=== PATIENT | female | born 1985 | race Caucasian/White ===

== ENCOUNTER 2017-05-25 23:50 | Outpatient (CLI) | payer MEDICAID | END 2017-05-26 01:04 | disposition home or self-care (01) | LOC: L-D 23:50 → OBT 23:50 | DX: O62.9 Abnormality of forces of labor, unspecified (principal); Z3A.38 38 weeks gestation of pregnancy | CPT/HCPCS: Z7500 ==

== ENCOUNTER 2017-05-31 00:06 | Inpatient (IN) | payer MEDICAID ==
[2017-05-31] MEDS ORDERED: LACTATED RINGER'S 500 ML IV (03:42)
[2017-05-31] MEDS ORDERED: LIDOCAINE 1% (MPF) 30 ML INJ INJ (04:00)
[2017-05-31] MEDS: AMPICILLIN 2 GM/NS (PMX) 100 ML IV (04:00)
[2017-05-31] MEDS ORDERED: MISOPROSTOL 200 MCG TAB PR ×3 (04:00→15:30)
[2017-05-31] MEDS ORDERED: CARBOPROST 250 MCG INJ IM ×3 (04:00→15:30)
[2017-05-31] MEDS ORDERED: IBUPROFEN 600 MG TAB PO (04:00)
[2017-05-31] MEDS ORDERED: HYDROCODONE/APAP (5/325) TAB PO ×2 (04:00→14:00)
[2017-05-31] MEDS ORDERED: OXYTOCIN 30 UNITS/LR 500 ML IV ×6 (04:00→15:30)
[2017-05-31] MEDS ORDERED: BUTORPHANOL 2 MG INJ IV (04:00)
[2017-05-31] MEDS ORDERED: METHYLERGONOVINE 0.2 MG INJ IM ×3 (04:00→15:30)
[2017-05-31 04:37] LABS: ADD MAN DIFF? NO
[2017-05-31 04:51] LABS: ADD UMIC YES; UR ASCORBIC ACID 40 mg/dL (NEGATIVE); UR BACTERIA FEW /HPF (NONE SEEN); UR BILIRUBIN (Dip) NEGATIVE (NEGATIVE); UR BLOOD (Dip) NEGATIVE (NEGATIVE); UR CLARITY CLOUDY (CLEAR); UR COLOR YELLOW (YELLOW); UR GLUCOSE (Dip) NEGATIVE (NEGATIVE); UR KETONES (Dip) NEGATIVE (NEGATIVE); UR LEUKOCYTE ESTERASE (Dip) 2+ Leu/ul (NEGATIVE); UR MUCUS FEW /HPF (NONE SEEN); UR NITRITE (Dip) NEGATIVE (NEGATIVE); UR RBC 1 /HPF (0-5); UR SPECIFIC GRAVITY (Dip) 1.027 (1.003-1.030); UR SQUAMOUS EPITHELIAL CELL MODERATE /HPF (FEW); UR TOTAL PROTEIN (Dip) 1+ mg/dl (NEGATIVE); UR UROBILINOGEN (Dip) 1+ mg/dL (NEGATIVE); UR WBC 24 /HPF (0-5)
[2017-05-31 04:59] LABS: INR 0.89; PROTIME 12.1 Sec (11.9-14.9); PT RATIO 0.9
[2017-05-31 05:00] LABS: PARTIAL THROMBOPLASTIN TIME 25.8 Sec (25.0-35.0)
[2017-05-31 05:14] LABS: WHITE BLOOD COUNT 9.2 10^3/ul (4.8-10.8)
[2017-05-31 05:14] LABS: BASOPHILS % 0.4 % (0.0-2.0); EOSINOPHILS # 0.1 10^3/ul (0.0-0.5); EOSINOPHILS % 1.1 % (0.0-7.0); HEMATOCRIT 31.9 % (37.0-47.0); HEMOGLOBIN 10.6 g/dl (12.0-16.0); LYMPHOCYTES # 2.5 10^3/ul (0.8-2.9); LYMPHOCYTES % 27.3 % (15.0-51.0); MEAN CORPUSCULAR HEMOGLOBIN 26.1 pg (29.0-33.0); MEAN CORPUSCULAR HGB CONC 33.2 g/dl (32.0-37.0); MEAN CORPUSCULAR VOLUME 78.6 fl (82.0-101.0); MEAN PLATELET VOLUME 9.6 fl (7.4-10.4); MONOCYTE # 0.6 10^3/ul (0.3-0.9); MONOCYTES % 6.6 % (0.0-11.0); NEUTROPHIL # 5.9 10^3/ul (1.6-7.5); NEUTROPHILS % 64.1 % (39.0-77.0); PLATELET COUNT 299 10^3/UL (140-415); RED BLOOD COUNT 4.06 10^6/ul (4.20-5.40); RED CELL DISTRIBUTION WIDTH 14.5 % (11.5-14.5)
[2017-05-31] MEDS: LACTATED RINGER'S 1,000 ML IV (05:37)
[2017-05-31] MEDS ORDERED: AMPICILLIN 1 GM/NS (PMX) 50 ML IV (08:00)
[2017-05-31] MEDS: OXYTOCIN 30 UNITS/LR 500 ML IV ×3 (09:41→16:21)
[2017-05-31] MEDS: BUTORPHANOL 2 MG INJ IV (11:31)
[2017-05-31 12:53] LABS: AMPHETAMINE/METHAMPHETAMINE Negative (NEGATIVE); BARBITURATES Negative (NEGATIVE); BENZODIAZEPINES Negative (NEGATIVE); CANNABINOIDS Negative (NEGATIVE); COCAINE Negative (NEGATIVE); OPIATES Negative (NEGATIVE)
[2017-05-31] MEDS ORDERED: LACTATED RINGER'S 1,000 ML IV* (13:47)
[2017-05-31] MEDS ORDERED: ACETAMINOPHEN 325 MG TAB PO (14:00)
[2017-05-31] MEDS ORDERED: SENNA/DOCUSATE NA (8.6MG/50MG) TAB PO ×2 (14:00→15:30)
[2017-05-31] MEDS ORDERED: LANOLIN 7 GM TUBE TOP (14:00)
[2017-05-31] MEDS ORDERED: DIPHENHYDRAMINE 25 MG CAP PO (14:00)
[2017-05-31] MEDS ORDERED: ZOLPIDEM 5 MG TAB PO ×2 (14:00→15:30)
[2017-05-31] MEDS ORDERED: MAGNESIUM HYDROXIDE 30ML CUP PO (14:00)
[2017-05-31] MEDS ORDERED: WITCH HAZEL/GLYCERIN PAD PR (14:00)
[2017-05-31] MEDS ORDERED: OXYCODONE/ASPIRIN (4.88/325) TAB PO (15:30)
[2017-05-31 16:46] LABS: RAPID PLASMA REAGIN NONREACTIVE (NR)
[2017-05-31] MEDS: BENZOCAINE 20% 56 ML SPRAY TOP (17:01)
[2017-05-31] MEDS: LANOLIN 7 GM TUBE TOP (17:02)
[2017-05-31] MEDS: WITCH HAZEL/GLYCERIN PAD PR (17:02)
[2017-05-31 17:54] LABS: HEPATITIS B SURFACE ANTIGEN NEGATIVE (NEGATIVE)
[2017-05-31] MEDS ORDERED: IBUPROFEN 800 MG TAB PO (18:00)
[2017-05-31] MEDS: IBUPROFEN 600 MG TAB PO ×2 (18:28→23:47)
[2017-05-31] MEDS: SENNA/DOCUSATE NA (8.6MG/50MG) TAB PO (20:35)
[2017-06-01] MEDS: IBUPROFEN 600 MG TAB PO ×3 (05:37→18:03)
[2017-06-01] MEDS: SENNA/DOCUSATE NA (8.6MG/50MG) TAB PO ×2 (10:06→20:54)
[2017-06-01 10:18] LABS: ADD MAN DIFF? NO
[2017-06-01 10:20] LABS: BASOPHIL # 0.1 10^3/ul (0.0-0.1); BASOPHILS % 0.5 % (0.0-2.0); EOSINOPHILS # 0.1 10^3/ul (0.0-0.5); EOSINOPHILS % 0.6 % (0.0-7.0); HEMATOCRIT 27.9 % (37.0-47.0); HEMOGLOBIN 9.2 g/dl (12.0-16.0); LYMPHOCYTES # 2.5 10^3/ul (0.8-2.9); LYMPHOCYTES % 22.8 % (15.0-51.0); MEAN CORPUSCULAR HEMOGLOBIN 26.2 pg (29.0-33.0); MEAN CORPUSCULAR VOLUME 79.5 fl (82.0-101.0); MEAN PLATELET VOLUME 9.5 fl (7.4-10.4); MONOCYTE # 0.6 10^3/ul (0.3-0.9); MONOCYTES % 5.3 % (0.0-11.0); NEUTROPHIL # 7.6 10^3/ul (1.6-7.5); NEUTROPHILS % 70.3 % (39.0-77.0); PLATELET COUNT 265 10^3/UL (140-415); RED BLOOD COUNT 3.51 10^6/ul (4.20-5.40); RED CELL DISTRIBUTION WIDTH 14.9 % (11.5-14.5)
[2017-06-01 10:20] LABS: WHITE BLOOD COUNT 10.8 10^3/ul (4.8-10.8)
[2017-06-02] MEDS: IBUPROFEN 600 MG TAB PO ×3 (00:50→12:19)
[2017-06-02] MEDS: DIPHTH/TET/ACEL PERTUSS (ADULT) 0.5 ML VIAL IM* ×2 (09:00)
[2017-06-02] MEDS: VARICELLA VACCINE LIVE/PF 1,350 UNIT/0.5 ML ML SC* (09:00)
[2017-06-02] MEDS: MEASLES,MUMPS,RUBELLA VACCINE INJ SC* (09:00)
[2017-06-02] MEDS: SENNA/DOCUSATE NA (8.6MG/50MG) TAB PO (12:19)
== END 2017-06-02 14:00 | disposition home or self-care (01) | DRG 775 ==
LOC: OBT 00:06 → L-D 00:08 → OBT 03:39 → L-D 03:41 → PP1 15:13
PROVIDERS: Obstetrics & Gynecology
PROC: 10E0XZZ Delivery of Products of Conception, External Approach (ICD-10-PCS; principal; 2017-05-31)
DX: O80 Encounter for full-term uncomplicated delivery (principal); Z37.0 Single live birth; Z3A.39 39 weeks gestation of pregnancy
CPT/HCPCS: 80307; 81001; 85025; 85610; 85730; 86592; 86850; 86900; 86901; 87086; 87340; 90715; 90716

== ENCOUNTER 2018-11-30 14:33 | Day surgery (SDC) | payer OTHER ==
[2018-11-30] MEDS: LACTATED RINGER'S 1,000 ML IV (15:51)
[2018-11-30] MEDS ORDERED: COCAINE 4% 4 ML TOP (17:36)
[2018-11-30] MEDS ORDERED: BACITRACIN/POLYMYXIN 28.35 GM OINT TOP (17:36)
[2018-11-30] MEDS ORDERED: LABETALOL HCL 20MG INJ IV (18:00)
[2018-11-30] MEDS ORDERED: FENTAnyl 50 MCG/ML VIAL IV ×2 (18:00)
[2018-11-30] MEDS ORDERED: MIDAZOLAM 1 MG/ML 2 ML INJ IV (18:00)
[2018-11-30] MEDS ORDERED: ONDANSETRON 4 MG INJ IV ×2 (18:00→19:30)
[2018-11-30] MEDS ORDERED: OXYCODONE/ACETAMINOPHEN (5/325) TAB PO ×2 (18:00)
[2018-11-30] MEDS ORDERED: EPHEDrine 25 MG/5 ML SYG IV (18:00)
[2018-11-30] MEDS ORDERED: ALBUTEROL 0.083% (NEB) 2.5 MG/3 ML AMP HHN (18:00)
[2018-11-30] MEDS ORDERED: TRIMETHOBENZAMIDE 100 MG/ML VIAL IM (18:00)
[2018-11-30] MEDS ORDERED: hydrALAzine 20 MG INJ IV (18:00)
[2018-11-30] MEDS ORDERED: IPRATROPIUM (NEB) 0.5 MG/2.5 ML AMP HHN (18:00)
[2018-11-30] MEDS ORDERED: SEVOFLURANE 15 MIN (18:00)
[2018-11-30] MEDS ORDERED: MEPERIDINE 25 MG INJ IV (18:00)
[2018-11-30] MEDS ORDERED: HYDROmorphONE 1 MG/5 ML IV SYRINGE IV ×6 (18:00→19:30)
[2018-11-30] MEDS ORDERED: DIPHENHYDRAMINE 50 MG INJ IV (18:00)
[2018-11-30] MEDS ORDERED: PROPOFOL 20 ML (18:04)
[2018-11-30] MEDS ORDERED: LIDOCAINE 2% (SDV) 5 ML INJ (18:04)
[2018-11-30] MEDS ORDERED: FENTAnyl 50 MCG/ML VIAL (18:04)
[2018-11-30] MEDS ORDERED: MIDAZOLAM 1 MG/ML 2 ML INJ (18:04)
[2018-11-30] MEDS ORDERED: CEFAZOLIN 1 GM INJ (18:11)
[2018-11-30] MEDS ORDERED: ONDANSETRON 4 MG INJ (18:16)
[2018-11-30] MEDS: LIDOCAINE 1%/EPI 30 ML INJ (18:26)
[2018-11-30] MEDS: FENTAnyl 50 MCG/ML VIAL IV (19:42)
== END 2018-11-30 20:00 | disposition home or self-care (01) ==
LOC: SDS 14:33
DX: Q18.0 Sinus, fistula and cyst of branchial cleft (principal)
CPT/HCPCS: 42810; 88304